=== PATIENT | female | born 1965 | race Hispanic/Latino ===

== ENCOUNTER 2016-09-18 10:02 | Emergency (ER) | payer BC ==
[~2016-09-18] VITALS: Ht 165.1 cm; Wt 70.0 kg
[2016-09-18] MEDS ORDERED: PREDNISONE50 MG PO (11:30)
[2016-09-18] MEDS ORDERED: MOTRIN800 MG PO (11:30)
[2016-09-18 11:32] VITALS: BP 156/92
== END 2016-09-18 11:40 | disposition home or self-care (01) | DRG 153 ==
LOC: ED 10:02
DX: J02.0 Streptococcal pharyngitis (principal)
CPT/HCPCS: J0561

== ENCOUNTER 2017-08-17 17:13 | Emergency (ER) | payer BC ==
[~2017-08-17] VITALS: Ht 165.1 cm; Wt 76.0 kg
[~2017-08-17 17:13] MED LIST: MOTRIN800 MG PO; PREDNISONE50 MG PO
[2017-08-17 18:18] LABS: INFLUENZA A NONE DETECTED (NONE DETECT); INFLUENZA B NONE DETECTED (NONE DETECT)
[2017-08-17] MEDS ORDERED: ZPAK PO (18:20)
[2017-08-17 18:25] VITALS: BP 130/82
== END 2017-08-17 18:30 | disposition home or self-care (01) | DRG 153 ==
LOC: ED 17:13
PROVIDERS: Family Medicine
DX: J06.9 Acute upper respiratory infection, unspecified (principal); R05 Cough; R50.9 Fever, unspecified; R09.81 Nasal congestion